=== PATIENT | female | born 1980 | race Caucasian/White ===

== ENCOUNTER 2020-01-30 17:33 | Outpatient (CLI) | payer SELFPAY ==
[~2020-01-30] VITALS: Ht 165.1 cm; Wt 172.7 kg
[2020-01-30 18:28] LABS: MICROSCOPIC INDICATED
[2020-01-30] MEDS ORDERED: OXYcodone/APAP 5/325MG TABLET PO ONE (19:30)
[2020-01-30] MEDS ORDERED: ONDANSETRON ODT 4 MG PO ONE (19:30)
[2020-01-30] MEDS ORDERED: ONDANSETRON ODT 4 MG ONE (19:34)
[2020-01-30] MEDS ORDERED: OXYcodone/APAP 5/325MG TABLET ONE (19:34)
== END 2020-01-30 19:45 | disposition home or self-care (01) ==
LOC: LDOP 17:33
PROVIDERS: ATTEND Obstetrics & Gynecology
DX: O36.8130 Decreased fetal movements, third trimester, not applicable or unspecified (principal); O26.893 Other specified pregnancy related conditions, third trimester; O09.513 Supervision of elderly primigravida, third trimester; N20.0 Calculus of kidney; Z3A.29 29 weeks gestation of pregnancy
CPT/HCPCS: 76770; 76819; 81001; 82570; 84156; 87077; 87086; 87186; 99201; Q0162; G0463